=== PATIENT | female | born 1975 | race African-American/Black ===

== ENCOUNTER 2016-11-09 10:37 | Day surgery (SDC) | payer OTHER ==
[2016-11-05 10:09] VITALS: BMI 21.6
[2016-11-09] MEDS ORDERED: oxyCODONE HCL 5 MG TABLET PO PRN ×2 (12:53→15:44)
[2016-11-09] MEDS ORDERED: PROMETHAZINE HCL 25 MG/1 ML VIAL IVPUSH PRN (12:53)
[2016-11-09] MEDS ORDERED: ONDANSETRON 4 MG/2 ML VIAL IVPUSH PRN (12:53)
--- NOTE | 2016-11-09 12:58 | HP ---
History & Physical Update - History History: No Change - Physical Physical: No Change - Assessment Assessment: No Change - Plan Plan: No Change (Consent signed and witnessed)
[2016-11-09] MEDS ORDERED: LACTATED RINGERS SOLUTION 1,000 ML IV SCH (13:00)
[2016-11-09] MEDS ORDERED: MIDAZOLAM HCL 2 MG/2 ML SINGLE DOSE VIAL ONE (13:14)
[2016-11-09] MEDS ORDERED: PROPOFOL 20 ML ONE (13:23)
[2016-11-09] MEDS ORDERED: LIDOCAINE HCL/PF 2% SDV 5ML VIAL ONE (13:38)
[2016-11-09] MEDS ORDERED: KETOROLAC TROMETHAMINE 30 MG/1 ML VIAL ONE (13:38)
[2016-11-09] MEDS ORDERED: DEXAMETHASONE SOD PHOSPHATE 4 MG/1 ML VIAL ONE (13:38)
--- NOTE | 2016-11-09 14:33 | OP ---
Operative Note - Note: Operative Date: 11/09/16 Pre-Operative Diagnosis: 41 yo P2 with Menorhagia, fibroid uterus Operation: Hysteroscopy, adhesiolysis, myomectomy, polypectomy using Kyree-Clear device Findings: 1. Fibropolypoid tissue at the uterine fundus 2. Polypoid tissue anterior uterine body 3. Uterine adhesion Post-Operative Diagnosis: Same as Pre-op (and uterine adhesions) Surgeon: Carrie Hatfield Anesthesiologist/ENGINEER TECHNICAL STAFF: Radha Britton MD Anesthesia: General Specimens Removed: 1. Fibroid, polyp, adhesion. 2. Endometrial curettings Estimated Blood Loss (mls): 20 Drains, Volume Out (mls): 50 Fluid Volume Replaced (mls): 800 Operative Report Dictated: Yes
[2016-11-09] MEDS ORDERED: IBUPROFEN 600 MG TABLET (FP) PO PRN (15:44)
[2016-11-09] MEDS ORDERED: IBUPROFEN 800 MG/8 ML IJ IVPB PRN (15:44)
[2016-11-09] MEDS ORDERED: ONDANSETRON 4 MG/2 ML VIAL IVPB PRN (15:44)
[2016-11-09] MEDS ORDERED: ELECTROLYTE-148 SOLN 1,000 ML IV SCH (15:45)
[2016-11-09 15:46] VITALS: TEMP 97.9
[2016-11-09 17:13] VITALS: BP 137/76; PULSE 56
--- NOTE | 2016-11-11 09:02 | OP ---
DATE OF OPERATION: 11/09/2016 PREOPERATIVE DIAGNOSIS: A 41-year-old para 2 with menorrhagia and fibroid uterus. OPERATION: Hysteroscopy, adhesiolysis, myomectomy, polypectomy using Truclear device. POSTOPERATIVE DIAGNOSIS: A 41-year-old para 2 with menorrhagia and fibroid uterus, finding of uterine adhesions. FINDINGS: 1. Fibroid polypoid tissue at the uterine fundus. 2. Polypoid tissue at the inferior uterine body. 3. Uterine adhesion. SURGEON: Philipp Hatfield MD ANESTHESIOLOGIST: Radha Britton MD ANESTHESIA: General. SPECIMENS REMOVED: 1. Fibroid polyp and adhesion. 2. Endometrial curettings. DESCRIPTION OF OPERATIVE PROCEDURE: After ensuring informed consent, the patient was brought to the operating room where she was placed in dorsal lithotomy position. The perineum and vagina were prepped and draped in a sterile fashion. After the Truclear hysteroscope was set up, wide balanced, and primed, the Pierre speculums were placed into the vagina. Anterior cervical lip was articulated with a single-tooth tenaculum, and cervix was gradually dilated with Leger dilators to accommodate the 5-mm hysteroscope. The 5-mm hysteroscope was introduced without any difficulty, and intrauterine contents were surveyed. The uterine fundus contained approximately 2-cm fibroid polypoid structure. The anterior uterine body contained small polyps and also an adhesion spanning from anterior to posterior uterine surface. The Truclear device was used to resect all above discussed structures and suction them into the specimen trap, which was then sent to pathology. The sharp, serrated curette was used to perform sharp curette. Uterus was found to be empty of any further contents. All sponges and instruments were removed from the vagina. Excellent hemostasis was achieved. Instrument and sponge count was correct x2. Estimated blood loss was 20 mL. The patient put out 50 mL of urine and had 800 mL of Plasma-Lyte replaced. PHILIPP HATFIELD M.D. [id number]
--- NOTE | 2016-11-11 13:17 | PATH ---
Surgical Pathology Report Patient Name: ALIE CARTER Med. Rec. #: [id number] /Age/Gender: 1975 (Age: 41) / F Account: [id number] Location: [facility] SURGICAL Taken: 11/09/2016 Received: 11/10/2016 Reported: 11/11/2016 Physicians: Carrie Hatfield M.D. Specimen(s) Received A: FIBROID VS POLYP, UTERINE ADHESION B: ENDOMETRIAL CURETTINGS Clinical History Endometrial thickening Final Diagnosis A. FIBROID VS POLYP, UTERINE ADHESION: POLYPOID FRAGMENTS OF DISORDERED PROLIFERATIVE ENDOMETRIUM WITH AREAS MOST CONSISTENT WITH ENDOMETRIAL POLYP. ADDITIONAL FRAGMENTS OF INACTIVE-TYPE ENDOMETRIUM, SUGGESTIVE OF ADHESION. FRAGMENTS OF BENIGN SMOOTH MUSCLE. B. ENDOMETRIUM, CURETTAGE: FRAGMENTS OF INACTIVE ENDOMETRIUM. FRAGMENTS OF BENIGN SMOOTH MUSCLE. FRAGMENTS OF BENIGN ENDOCERVICAL TISSUE. FRAGMENTS OF BENIGN SQUAMOUS EPITHELIUM. Electronically Signed Luis Gonsalez M.D. Gross Description A. Received in formalin, labeled "fibroids versus polyp, uterine adhesion" are multiple fragments of wakefield-pink and wakefield-red tissue ranging from 0.2 0.3 cm greatest dimension. Submitted entirely in one cassette. B. Received in formalin, labeled "endometrial curettings" multiple fragments a wakefield-red hemorrhagic tissue 2.5 x 2 x 0.3 cm in aggregate size. Submitted entirely in one cassette. AF/11/10/2016 final/11/10/2016
== END 2016-11-09 17:00 | disposition home or self-care (01) ==
LOC: JASU-SURG 10:37
PROVIDERS: ATTEND Obstetrics & Gynecology
PROC: 0UB98ZX Excision of Uterus, Via Natural or Artificial Opening Endoscopic, Diagnostic (ICD-10-PCS; principal; 2016-11-09 12:00)
PROC: 0UB98ZZ Excision of Uterus, Via Natural or Artificial Opening Endoscopic (ICD-10-PCS; 2016-11-09 12:00)
DX: N92.0 Excessive and frequent menstruation with regular cycle (principal); D25.9 Leiomyoma of uterus, unspecified; N84.0 Polyp of corpus uteri; N73.6 Female pelvic peritoneal adhesions (postinfective)
CPT/HCPCS: 84703; 88305-TC; 94760

== ENCOUNTER 2016-11-16 16:01 | Inpatient (IN) | payer OTHER ==
[2016-11-16] MEDS ORDERED: ONDANSETRON 4 MG/2 ML VIAL IVPB ONE (17:18)
[2016-11-16] MEDS ORDERED: ACETAMINOPHEN 325 MG TABLET (FP) PO ONE (17:28)
[2016-11-16] MEDS ORDERED: morphine CARPU-JECT 4 MG/1 ML DISP.SYRIN IVPUSH ONE (17:29)
[2016-11-16] MEDS ORDERED: ONDANSETRON 4 MG/2 ML VIAL ONE (17:31)
--- NOTE | 2016-11-16 17:36 | PDOC ---
History of Present Illness - General History Source: Patient, Old Records Exam Limitations: No Limitations - History of Present Illness Initial Comments: 11/16/16 17:36 The patient is a 41 year old female presenting with her daughter, with a significant past medical history of anemia, fibroids and asthma, who presents to the emergency department with abdominal pain, nausea, fever, chills, diarrhea and vaginal discharge for the past 2 days. She reports that her abdominal pain is localized in the suprapubic region, ranging from mild to moderate. She notes that her diarrhea is nonbloody. She states that her vaginal discharge has a foul smell. The patient had a D&C performed last week due to her fibroids. Since shes had vaginal spotting that has turned into small clots the last couple of days. The patient denies chest pain, shortness of breath, headache and dizziness. Denies, vomit, and constipation. Denies dysuria, frequency, urgency and hematuria. Allergies: None Past surgical history: (x2) Social history: Cigarette use (10 daily). No alcohol or drug use reported <Josh Montague - Last Filed: 11/16/16 18:10> <William Obrien - Last Filed: 11/16/16 19:00> - General Chief Complaint: Pain Stated Complaint: NAUSEA Time Seen by Provider: 11/16/16 16:58 Past History <Josh Montague - Last Filed: 11/16/16 18:10> - Past Medical History Anemia: Yes Asthma: Yes Cancer: No Cardiac Disorders: No CVA: No COPD: No CHF: No Dementia: No Diabetes: No GI Disorders: No Disorders: No HTN: No Hypercholesterolemia: No Liver Disease: No Seizures: No Thyroid Disease: No - Surgical History Abdominal Surgery: Yes Appendectomy: No Cardiac Surgery: No Cholecystectomy: No Lung Surgery: No Neurologic Surgery: No Orthopedic Surgery: No - Family Disease History Family Disease History: Heart Disease: Mother (hypertension) - Psycho/Social/Smoking Cessation Hx Anxiety: No Suicidal Ideation: No Smoking History: Current every day smoker Have you smoked in the past 12 months: Yes Number of Cigarettes Smoked Daily: 5 Information on smoking cessation initiated: No 'Breaking Loose' booklet given: 11/09/16 Hx Alcohol Use: No Drug/Substance Use Hx: No Substance Use Type: Alcohol Hx Substance Use Treatment: No <CamilleWilliam - Last Filed: 11/16/16 19:00> - Past Medical History Allergies/Adverse Reactions: Allergies Allergy/AdvReac Type Severity Reaction Status Date / Time latex [Latex] Allergy Rash Verified 11/16/16 16:39 No Known Drug Allergies Allergy Verified 11/16/16 16:39 Home Medications: Ambulatory Orders Montelukast Na [Singulair -] 10 mg PO HS 01/11/15 Loratadine [Claritin] 10 mg PO DAILY PRN 11/05/16 Review of Systems - Review of Systems Able to Perform ROS?: Yes Comments:: 11/16/16 17:37 GENERAL/CONSTITUTIONAL: (+) Fever and chills. No weakness. HEAD, EYES, EARS, NOSE AND THROAT: No change in vision. No ear pain or discharge. No sore throat. CARDIOVASCULAR: No chest pain or shortness of breath RESPIRATORY: No cough, wheezing, or hemoptysis. GASTROINTESTINAL: (+) Nausea and diarrhea. No vomiting or constipation. GENITOURINARY: (+) Vaginal discharge with foul odor. No dysuria, frequency, or change in urination. MUSCULOSKELETAL: No joint or muscle swelling or pain. No neck or back pain. SKIN: No rash NEUROLOGIC: No headache, vertigo, loss of consciousness, or change in strength/ sensation. ENDOCRINE: No increased thirst. No abnormal weight change HEMATOLOGIC/LYMPHATIC: No anemia, easy bleeding, or history of blood clots. ALLERGIC/IMMUNOLOGIC: No hives or skin allergy. <Josh Montague - Last Filed: 11/16/16 18:10> *Physical Exam - Vital Signs Last Vital Signs Temp Pulse Resp BP Pulse Ox 100.2 F H 111 H 18 150/99 99 11/16/16 16:38 11/16/16 16:38 11/16/16 16:38 11/16/16 16:38 11/16/16 16:38 - Physical Exam Comments: 11/16/16 17:37 GENERAL: Awake, alert, and fully oriented, in no acute distress HEAD: No signs of trauma, normocephalic, atraumatic EYES: PERRLA, EOMI, sclera anicteric, conjunctiva clear ENT: Auricles normal inspection, hearing grossly normal, nares patent, oropharynx clear without exudates. Moist mucosa NECK: Normal ROM, supple, no lymphadenopathy, JVD, or masses LUNGS: No distress, speaks full sentences, clear to auscultation bilaterally HEART: Regular rate and rhythm, normal S1 and S2, no murmurs, rubs or gallops, peripheral pulses normal and equal bilaterally. ABDOMEN: (+) Diffuse lower abdominal tenderness most pronounced in the left quadrant. Soft, normoactive bowel sounds. No guarding, no rebound. No masses EXTREMITIES: Normal inspection, Normal range of motion, no edema. No clubbing or cyanosis. NEUROLOGICAL: Cranial nerves II through XII grossly intact. Normal speech, normal gait, no focal sensorimotor deficits SKIN: Warm, Dry, normal turgor, no rashes or lesions noted. PELVIC EXAM: (+) No CMT, palpable fibroids with no adnexal tenderness, scant greenish discharge, no active bleeding, os is closed. <Josh Montague - Last Filed: 11/16/16 18:10> - Vital Signs Last Vital Signs Temp Pulse Resp BP Pulse Ox 100.2 F H 111 H 18 150/99 99 11/16/16 16:38 11/16/16 16:38 11/16/16 16:38 11/16/16 16:38 11/16/16 16:38 <William Obrien - Last Filed: 11/16/16 19:00> ED Treatment Course - LABORATORY CBC & Chemistry Diagram: 11/16/16 17:29 11/16/16 17:29 <Josh Motnague - Last Filed: 11/16/16 18:10> - LABORATORY CBC & Chemistry Diagram: 11/16/16 17:29 11/16/16 17:29 <William Obrien - Last Filed: 11/16/16 19:00> Medical Decision Making - Medical Decision Making 11/16/16 18:16 41 F with h/o uterine fibroids s/p hysteroscopy, myomectomy, polypectomy with Dr. Hatfield presenting to ER with lower abdominal pain, vaginal bleeding, and discharge. Exam notable for lower abdominal TTP and foul smelling greenish vaginal discharge. Concerning for PID, possibly 2/2 recent instrumentation, though pt endorses h/o trichomonas in the past. Also consider UTI/pyelo. If source not found, will consider work up for GI etiology. - Labs, UA, UCx, GC/CT - IVF, analgesia - Call outside laborer Dr. Hatfield 11/16/16 18:59 Per conversation with covering outside laborer Dr. Olea, pt warrants IV abx and admission to hospital. CBC, BMP 11/16/16 17:29 11/16/16 17:29 CMP Sodium 135 mmol/L (136-145) L 11/16/16 17:29 Potassium 3.6 mmol/L (3.5-5.1) 11/16/16 17:29 Chloride 101 mmol/L (98-107) 11/16/16 17:29 Carbon Dioxide 25 mmol/L (21-32) 11/16/16 17:29 Anion Gap 9 (8-16) 11/16/16 17:29 BUN 8 mg/dL (7-18) 11/16/16 17:29 Creatinine 0.6 mg/dL (0.55-1.02) 11/16/16 17:29 Creat Clearance w eGFR > 60 (>60) 11/16/16 17:29 Random Glucose 86 mg/dL (74-106) 11/16/16 17:29 Lactic Acid 0.9 mmol/L (0.4-2.0) 11/16/16 17:29 Calcium 9.4 mg/dL (8.5-10.1) 11/16/16 17:29 Total Bilirubin 1.4 mg/dL (0.2-1.0) H D 11/16/16 17:29 AST 18 U/L (15-37) D 11/16/16 17:29 ALT 16 U/L (12-78) D 11/16/16 17:29 Alkaline Phosphatase 69 U/L (45-117) 11/16/16 17:29 Total Protein 7.5 g/dl (6.4-8.2) 11/16/16 17:29 Albumin 4.0 g/dl (3.4-5.0) 11/16/16 17:29 Lipase 52 U/L (73-393) L 11/16/16 17:29 Vital Signs Temp Pulse Resp BP Pulse Ox 100.2 F H 111 H 18 150/99 99 11/16/16 16:38 11/16/16 16:38 11/16/16 16:38 11/16/16 16:38 11/16/16 16:38 <William Obrien - Last Filed: 11/16/16 19:00> *DC/Admit/Observation/Transfer - Attestations Scribe Attestion: 11/16/16 17:37 Documentation prepared by Josh Montague, acting as medical reviewer for William Obrien MD <Josh Montague - Last Filed: 11/16/16 18:10> - Discharge Dispostion Admit: Yes - Attestations Physician Attestion: 11/16/16 18:36 I, Dr. William Obrien MD, attest that this document has been prepared under my direction and personally reviewed by me in its entirety. I further attest, that it accurately reflects all work, treatment, procedures and medical decision -making performed by me. <William Obrien - Last Filed: 11/16/16 19:00> Diagnosis at time of Disposition: Abdominal pain Qualifiers: Abdominal location: unspecified location Qualified Code(s): R10.9 - Unspecified abdominal pain - Referrals Referrals: Durga Colin [Primary Care Provider] -
[2016-11-16] MEDS: SODIUM CHLORIDE 1,000 ML IV SCH (18:00)
[2016-11-16 18:04] LABS: WHITE BLOOD COUNT 14.5 K/mm3 (4.0-10.0)
[2016-11-16 18:05] LABS: BASOPHIL 0.4 % (0-2.0); EOSINOPHIL 0.1 % (0-4.5); MCH 28.8 pg (25.7-33.7); MCHC 32.5 g/dl (32.0-36.0); MEAN CELL VOLUME 88.6 fl (80-96); MEAN PLT VOLUME 9.1 fl (7.5-11.1); NEUTROPHILS 89.7 % (42.8-82.8); PLATELET COUNT 194 K/MM3 (134-434); RDW 14.4 % (11.6-15.6)
[2016-11-16] MEDS ORDERED: ACETAMINOPHEN 325 MG TABLET (FP) ONE (18:29)
[2016-11-16] MEDS ORDERED: morphine CARPU-JECT 4 MG/1 ML DISP.SYRIN ONE (18:29)
[2016-11-16 18:35] LABS: ANION GAP 9 (8-16); CALCIUM 9.4 mg/dL (8.5-10.1); CO2 25 mmol/L (21-32); GLUCOSE,RANDOM 86 mg/dL (74-106)
[2016-11-16 18:38] LABS: ALK PHOS 69 U/L (45-117); BILIRUBIN,TOTAL 1.4 mg/dL (0.2-1.0); CREATININE 0.6 mg/dL (0.55-1.02); SGOT/AST 18 U/L (15-37); SGPT/ALT 16 U/L (12-78); TOT PROT 7.5 g/dl (6.4-8.2)
[2016-11-16 18:54] LABS: URINE APPEARANCE CLOUDY; URINE BILIRUBIN NEGATIVE (NEGATIVE); URINE BLOOD 3+ (NEGATIVE); URINE COLOR YELLOW; URINE GLUCOSE (UA) NEGATIVE (NEGATIVE); URINE KETONE 1+ (NEGATIVE); URINE LEUK ESTERASE 3+ (NEGATIVE); URINE NITRITE NEGATIVE (NEGATIVE); URINE PROTEIN 2+ (NEGATIVE); URINE UROBILINOGEN NEGATIVE mg/dL (0.2-1.0)
[2016-11-16] MEDS ORDERED: CEFTRIAXONE 1 GM in DEXTROSE 5%-WATER - 50 ML IVPB ONE (19:01)
[2016-11-16 19:09] LABS: URINE MUCUS RARE; URINE RBC 4 /hpf (0-3); URINE WBC 164 /hpf (3-5)
[2016-11-16 19:16] LABS: INR 1.2 (0.82-1.09); PROTHROMBIN TIME (PATIENT) 13.2 SEC (9.98-11.88)
[2016-11-16] MEDS ORDERED: CEFTRIAXONE 50 ML ONE (20:01)
[2016-11-16] MEDS ORDERED: IBUPROFEN 600 MG TABLET (FP) PO ONE ×2 (20:16→20:18)
[2016-11-16] MEDS ORDERED: IBUPROFEN 600 MG TABLET (FP) PO PRN (23:34)
[2016-11-16] MEDS: oxyCODONE HCL 5 MG TABLET PO PRN (23:52)
[2016-11-16] MEDS: ACETAMINOPHEN 325 MG TABLET (FP) PO PRN (23:53)
[2016-11-17] MEDS: DOXYCYCLINE INJECTION 100 MG in DEXTROSE 5%-WATER - 100 ML IVPB SCH ×3 (00:01→22:07)
[2016-11-17 00:57] VITALS: BMI 22.1
[2016-11-17] MEDS: METRONIDAZOLE 500 MG PREMIXED 100 ML IVPB SCH ×3 (02:18→19:13)
[2016-11-17] MEDS: oxyCODONE HCL 5 MG TABLET PO PRN ×2 (07:52→22:07)
[2016-11-17 07:55] LABS: BASOPHIL 0.3 % (0-2.0); EOSINOPHIL 1.1 % (0-4.5); MCH 29.5 pg (25.7-33.7); MCHC 33.5 g/dl (32.0-36.0); MEAN CELL VOLUME 88.1 fl (80-96); MEAN PLT VOLUME 8.6 fl (7.5-11.1); NEUTROPHILS 80.2 % (42.8-82.8); PLATELET COUNT 168 K/MM3 (134-434); RDW 14.3 % (11.6-15.6)
[2016-11-17 07:57] LABS: INR 1.26 (0.82-1.09); PROTHROMBIN TIME (PATIENT) 13.9 SEC (9.98-11.88)
[2016-11-17 08:00] LABS: ACTIVATED PTT 34.9 SECONDS (26.9-34.4)
[2016-11-17 08:29] LABS: ALBUMIN 2.9 g/dl (3.4-5.0); ALK PHOS 52 U/L (45-117); ANION GAP 6 (8-16); BILIRUBIN,TOTAL 0.6 mg/dL (0.2-1.0); CALCIUM 8.3 mg/dL (8.5-10.1); CO2 25 mmol/L (21-32); CREATININE 0.6 mg/dL (0.55-1.02); GLUCOSE,RANDOM 77 mg/dL (74-106); SGOT/AST 12 U/L (15-37); SGPT/ALT 13 U/L (12-78); TOT PROT 5.8 g/dl (6.4-8.2)
--- NOTE | 2016-11-17 09:23 | HP ---
Past Medical History - Primary Care Physician PCP:: Ernst Olea - Admission Chief Complaint: 41yo female s/p recent D&C admitted with postoperative endometritis History of Present Illness: Pt is s/p D&C on 11/09/16 with h/o chronic pelvic pain and fibroid uterus. The pt presented with fever and chills x 1-2 days getting worse, increased pelvic pain and foul smelling vaginal discharge. She was found to have a low grade fever and leukocytosis. 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 Cardiovascular: No: AFIB, Aneurysm, Aortic Insufficiency, Aortic Stenosis, CAD, CHF, Deep Vein Thrombosis, HTN, Hyperlipdemia, VT, Mitral Insufficiency, Mitral Stenosis, Murmur, Pulmonary Hypertension, Other Pulmonary: Yes: Asthma Gastrointestinal: No: Ascites, Cancer, Constipation, Crohn's Disease, Diverticulitis, Diverticulosis, Esophageal Varices, Gastritis, GERD, GI Bleed, Hemorrhoids, Hiatal Hernia, Inflamatory Bowel Disease, Irritable Bowel Disease, Pancreatitis, Peptic Ulcer Disease, Ulcerative Colitis, Other Hepatobiliary: No: Cirrhosis, Cholelithiasis, Cholecystitis, Choledocholithiasis , Hepatitis A, Hepatitis B, Hepatitis C, Other Renal/: No: Renal Failure, Renal Inusuff, BPH, Cancer, Hematuria, Hemodialysis , Neurogenic Bladder, Renal Calculi, UTI, Other Reproductive: Yes: Fibroids, Other (chronic pelvic pain) ...Para: 2 Heme/Onc: No: Anemia, B12 Deficiency, Bleeding Disorder, Cancer, Current Chemotherapy, Current Radiation Therapy, Hemochromatosis, Hypercoaguable State, Myeloproliferative Synd, Sickle Cell Disease, Sickle Cell Trait, Thrombocytopenia, Other Infectious Disease: No: AIDS, C-Diff, Herpes Zoster, HIV, MRSA, STD's, Tuberculosis, VREF, Other Psych: No: Addictions, Anxiety, Bipolar, Depression, Panic, Psychosis, Schizophrenia, Other Musculoskeletal: No: Bursitis, Chronic low back pain, Hemiparesis, Hemiplegia, Osteoarthritis, Paraplegia, Other Rheumatology: No: Fibromyalgia, Gout, Lupus, Rheumatoid Arthritis, Sarcoidosis, Vasculitis, Other ENT: No: Allergic Rhinitis, Sinusitis, Other Endocrine: No: Juancho's Disease, Sycamore's Disease, Diabetes Insipidus, Diabetes Mellitus, Hyperparathyroidism, Hyperthyroidism, Hypothyroidism, Osteopenia, SIADH, Other Dermatology: No: Basal Cell, Cellulitis, Eczema, Melanoma, Psoriasis, Squamous Cell, Other - Past Surgical History Past Surgical History: Yes: (x 2) Hx Myomectomy: No Hx Transabdominal Cerclage: No Additional Surgical History: Lipoma excision from left upper back - Smoking History Smoking history: Current every day smoker Have you smoked in the past 12 months: Yes Aproximately how many cigarettes per day: 5 (stopped 1 wk ago) - Alcohol/Substance Use Hx Alcohol Use: No History of Substance Use: reports: None - Social History ADL: Independent 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 [employer] History of Recent Travel: No Home Medications - Allergies Allergies/Adverse Reactions: Allergies Allergy/AdvReac Type Severity Reaction Status Date / Time latex [Latex] Allergy Rash Verified 11/16/16 16:39 No Known Drug Allergies Allergy Verified 11/16/16 16:39 - Home Medications Home Medications: Ambulatory Orders Montelukast Na [Singulair -] 10 mg PO HS 01/11/15 Loratadine [Claritin] 10 mg PO DAILY PRN 11/05/16 Family Disease History - Family Disease History Family Disease History: CA: Mother (breast ca at 45) Review of Systems - Review of Systems Constitutional: reports: Chills, Fever, Malaise, Weakness Eyes: reports: No Symptoms HENT: reports: No Symptoms Neck: reports: No Symptoms Cardiovascular: reports: No Symptoms Respiratory: reports: No Symptoms Gastrointestinal: reports: Abdominal Pain Genitourinary: reports: Vaginal Bleeding Breasts: reports: No Symptoms Reported Musculoskeletal: reports: Muscle Weakness Integumentary: reports: No Symptoms Neurological: reports: No Symptoms Endocrine: reports: No Symptoms Hematology/Lymphatic: reports: No Symptoms Psychiatric: reports: No Symptoms Pain Intensity: 6 Physical 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-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 Vital Signs: Vital Signs Temperature 98.5 F 11/17/16 06:00 Pulse Rate 87 11/17/16 06:00 Respiratory Rate 20 11/17/16 06:00 Blood Pressure 98/61 11/17/16 06:00 O2 Sat by Pulse Oximetry (%) 96 11/17/16 00:57 Constitutional: Yes: Well Nourished, No Distress, Calm Eyes: Yes: WNL, Conjunctiva Clear, EOM Intact HENT: Yes: WNL, Atraumatic, Normocephalic Neck: Yes: WNL, Supple, Trachea Midline Cardiovascular: Yes: WNL, Regular Rate and Rhythm Respiratory: Yes: WNL, Regular, CTA Bilaterally Gastrointestinal: Yes: WNL, Normal Bowel Sounds, Soft, Tenderness, Tenderness, Rebound Renal/: Yes: WNL Pelvis: Yes: Tenderness External Genitalia: Yes: Normal Internal Exam Deferred: No Vaginal Exam: Yes: Discharge Cervix: Yes: Normal Uterus: Yes: Enlarged (14wk), Firm, Lumpy, Tender Adnexa: Normal: Right, Tender: Left Breast(s): Yes: WNL Musculoskeletal: Yes: WNL Extremities: Yes: WNL Edema: No Edema: LLE: Trace, RLE: Trace Integumentary: Yes: WNL Neurological: Yes: WNL, Alert, Oriented ...Motor Strength: WNL Psychiatric: Yes: WNL, Alert, Oriented Labs: CBC, BMP 11/17/16 05:35 11/17/16 05:35 Assessment/Plan 41yo female s/p recent D&C admitted with postoperative endometritis. The pt was given IV abx and is clinically improving. The leukocytosis is decreasing, and she is now afebrile. The pain also improved. Plan to continue IV abx today and d /c home if stable. Fibroids discussed with the pt. Natural hx, pathology, tx options discussed. Explained that fibroids can be malignant in approximately 1:400 cases and imaging or endometrial sampling is not always diagnostic. The dx of malignancy can only be with examination of myomectomy or hysterectomy.
[2016-11-17] MEDS ORDERED: cefTRIAXone SODIUM 1 GM VIAL ONE (09:59)
[2016-11-17] MEDS ORDERED: DEXTROSE 5%-WATER - 50 ML IVPB ONE (10:00)
[2016-11-17] MEDS: CEFTRIAXONE 1 GM in DEXTROSE 5%-WATER - 50 ML IVPB SCH (10:52)
[2016-11-17] MEDS: POTASSIUM CHLORIDE TABS 20 MEQ TABLET.ER (FP) PO SCH ×2 (10:53→22:07)
[2016-11-17] MEDS: ACETAMINOPHEN 325 MG TABLET (FP) PO PRN (14:55)
--- NOTE | 2016-11-17 15:22 | EKG ---
Test Reason : Blood Pressure : / mmHG Vent. Rate : 103 BPM Atrial Rate : 103 BPM P-R Int : 160 ms QRS Dur : 090 ms QT Int : 334 ms P-R-T Axes : 062 048 053 degrees QTc Int : 437 ms SINUS TACHYCARDIA POSSIBLE LEFT ATRIAL ENLARGEMENT NONSPECIFIC T WAVE ABNORMALITY ABNORMAL ECG WHEN COMPARED WITH ECG OF 05-NOV-2016 17:36, VENT. RATE HAS INCREASED BY 37 BPM Confirmed by NAIDA BOLANOS, CAPRI ([id number]) on 11/17/2016 3:21:52 PM Referred By: Confirmed By:CAPRI PASCAL MD
[2016-11-17] MEDS: SODIUM CHLORIDE 1,000 ML IV SCH ×2 (19:13→23:31)
[2016-11-18] MEDS: METRONIDAZOLE 500 MG PREMIXED 100 ML IVPB SCH ×2 (02:05→10:31)
[2016-11-18] MEDS: ACETAMINOPHEN 325 MG TABLET (FP) PO PRN (06:17)
[2016-11-18] MEDS: POTASSIUM CHLORIDE TABS 20 MEQ TABLET.ER (FP) PO SCH (10:30)
[2016-11-18] MEDS: CEFTRIAXONE 1 GM in DEXTROSE 5%-WATER - 50 ML IVPB SCH (10:31)
[2016-11-18] MEDS: DOXYCYCLINE INJECTION 100 MG in DEXTROSE 5%-WATER - 100 ML IVPB SCH (10:31)
[2016-11-18 10:43] VITALS: BP 131/74; PULSE 64; TEMP 98.6
--- NOTE | 2016-11-18 19:08 | PN ---
Progress Note (SOAP) - Subjective Chief Complaint: Pt was seen earlier today. She states feeling much better, pain improved. No fever or chills, wants to go home. History of Present Illness: Postop endometritis. - Objective Vital Signs: Vital Signs Temperature 98.6 F 11/18/16 09:41 Pulse Rate 64 11/18/16 09:41 Respiratory Rate 20 11/18/16 09:41 Blood Pressure 131/74 11/18/16 09:41 O2 Sat by Pulse Oximetry (%) 97 11/18/16 09:41 Constitutional: Yes: Well Nourished, No Distress, Calm Eyes: Yes: WNL, Conjunctiva Clear HENT: Yes: WNL, Atraumatic, Normocephalic Neck: Yes: WNL, Supple, Trachea Midline Cardiovascular: Yes: WNL, Regular Rate and Rhythm Respiratory: Yes: WNL, Regular, CTA Bilaterally Gastrointestinal: Yes: WNL, Normal Bowel Sounds, Soft ...Rectal Exam: Yes: Deferred Genitourinary: Yes: WNL Musculoskeletal: Yes: WNL Extremities: Yes: WNL Peripheral Pulses WNL: No Edema: No Integumentary: Yes: WNL Neurological: Yes: WNL, Alert, Oriented ...Motor Strength: Yes: WNL Psychiatric: Yes: WNL Labs Lab Results: CBC, BMP 11/17/16 05:35 11/17/16 05:35 Imaging - Results Ultrasound: Report Reviewed Assessment/Plan 41yo female s/p recent D&C admitted with postoperative endometritis. The pt was given IV abx and is clinically improving. The pain also improved. Plan to d/c home today with office f/u this week.. Fibroids discussed with the pt.
== END 2016-11-18 11:10 | disposition home or self-care (01) | DRG 921 ==
LOC: SUPCPDRO 16:01 → JER 16:01 → JERBED 18:56 → J7W 23:23
PROVIDERS: ADMIT Obstetrics & Gynecology; ATTEND Obstetrics & Gynecology
DX: T81.89XA Other complications of procedures, not elsewhere classified, initial encounter (principal); Y83.9 Surgical procedure, unspecified as the cause of abnormal reaction of the patient, or of later complication, without mention of misadventure at the time of the procedure; N71.9 Inflammatory disease of uterus, unspecified; D72.829 Elevated white blood cell count, unspecified; F17.210 Nicotine dependence, cigarettes, uncomplicated
CPT/HCPCS: 36415; 76830-TC; 80053; 80307; 81003; 81015; 83605; 83690; 84703; 85025; 85610; 85730; 86850; 86900; 86901; 87040; 87086; 87186; 87491; 87591; 93005; 93010; 99283-25

== ENCOUNTER 2021-03-02 01:21 | Emergency (ER) | payer OTHER ==
[2021-03-02 01:41] VITALS: BP 164/89; PULSE 72; TEMP 97.6; BMI 20.7
[2021-03-02] MEDS ORDERED: LACTATED RINGERS SOLUTION 1000 ML INFUS.BAG IV ONE (02:44)
[2021-03-02] MEDS ORDERED: METOCLOPRAMIDE HCL INJECTION 10 MG/2 ML VIAL IVPUSH ONE (02:44)
[2021-03-02] MEDS ORDERED: METOCLOPRAMIDE HCL INJECTION 10 MG/2 ML VIAL ONE (02:54)
[2021-03-02 03:30] LABS: BASO % 0.6 % (0-2.0); EOS % 4.1 % (0-4.5); HEMATOCRIT 38.3 % (32.4-45.2); LYMPH % 42.2 % (8-40); MCH 30.1 pg (25.7-33.7); MCHC 33.8 g/dl (32.0-36.0); MEAN CELL VOLUME 89.1 fl (80-96); MEAN PLT VOLUME 8.5 fl (7.5-11.1); NEUT % 43.1 % (42.8-82.8); PLATELET COUNT 165 10^3/uL (134-434); RDW 13.7 % (11.6-15.6); WHITE BLOOD COUNT 5.3 K/mm3 (4.0-10.0)
[2021-03-02 03:38] LABS: CALCIUM 9.2 mg/dL (8.5-10.1)
[2021-03-02 03:39] LABS: BLOOD UREA NITROGEN 10.3 mg/dL (7-18)
[2021-03-02 03:42] LABS: CREATININE 0.8 mg/dL (0.55-1.3)
== END 2021-03-02 04:16 | disposition home or self-care (01) ==
LOC: JER 01:21
PROC: 3E033GC Introduction of Other Therapeutic Substance into Peripheral Vein, Percutaneous Approach (ICD-10-PCS; principal; 2021-03-02)
DX: R51.9 Headache, unspecified (principal)
CPT/HCPCS: 36415; 80048; 85025; 99284-25

== ENCOUNTER 2022-02-05 17:43 | Emergency (ER) | payer SELFPAY ==
[2022-02-05 18:17] VITALS: BP 138/71; PULSE 57; RESP 18; TEMP 98.2; BMI 19.1
[2022-02-05] MEDS ORDERED: predniSONE 20 MG TABLET (UD) PO ONE (18:35)
[2022-02-05] MEDS ORDERED: predniSONE 20 MG TABLET (UD) ONE (19:21)
[2022-02-05] MEDS ORDERED: ALBUTEROL SO4 2.5/IPRATROPIUM 0.5 INH SOL 3 ML VIAL.NEB. NEB ONE ×2 (19:47→19:50)
[2022-02-05 19:52] LABS: THROAT:GRP A STREP NOT DETECTED (NOTDETECTED)
== END 2022-02-05 20:57 | disposition home or self-care (01) ==
LOC: JER 17:43
PROC: 3E0F7GC Introduction of Other Therapeutic Substance into Respiratory Tract, Via Natural or Artificial Opening (ICD-10-PCS; principal; 2022-02-05)
DX: B34.9 Viral infection, unspecified (principal)
CPT/HCPCS: 0241U-QW; 71046-TC-FY; 87651; 99284-25

== ENCOUNTER 2022-11-16 04:29 | Inpatient (IN) | payer OTHER ==
[2022-11-16] MEDS ORDERED: BACITRACIN ZINC 15 GM TUBE TOPICAL OINTMENT ONE (07:48)
[2022-11-16] MEDS ORDERED: BUPIVACAINE HCL/PF 0.25% (2.5MG/ML) 10 ML VIAL ONE (08:46)
[2022-11-16] MEDS ORDERED: SCOPOLAMINE HYDROBROMIDE 1 PATCH PATCH.TD72 ONE (08:46)
[2022-11-16] MEDS ORDERED: BUPIVACAINE HCL/PF 0.5% (5MG/ML) 10 ML VIAL ONE (08:47)
[2022-11-16] MEDS ORDERED: DEXAMETHASONE SOD PHOSPHATE 10 MG/1 ML VIAL ONE (08:47)
[2022-11-16] MEDS ORDERED: MIDAZOLAM HCL 2 MG/2 ML SINGLE DOSE VIAL ONE (08:48)
[2022-11-16] MEDS ORDERED: IBUPROFEN 800 MG/8 ML IJ IVPB PRN (09:09)
[2022-11-16] MEDS ORDERED: ONDANSETRON 4 MG/2 ML VIAL IVPUSH PRN (09:09)
[2022-11-16] MEDS ORDERED: IBUPROFEN 600 MG TABLET (FP) PO PRN (09:09)
[2022-11-16] MEDS ORDERED: HYDROmorphone HCl 2 MG/ML VIAL ONE ×2 (09:13→10:15)
[2022-11-16] MEDS ORDERED: ELECTROLYTE-148 SOLN 1,000 ML IV SCH (09:15)
[2022-11-16] MEDS ORDERED: PROPOFOL 20 ML ONE (09:16)
[2022-11-16] MEDS ORDERED: LIDOCAINE HCL/PF 2% SDV 5ML VIAL ONE (09:16)
[2022-11-16] MEDS ORDERED: ceFAZolin SODIUM 1 GM VIAL ONE (09:16)
[2022-11-16] MEDS ORDERED: ROCURONIUM BROMIDE 50 MG/5 ML SYRINGE ONE ×2 (09:17→10:27)
[2022-11-16] MEDS ORDERED: ceFAZolin SODIUM 1 GM VIAL IVPB ONE (09:32)
[2022-11-16] MEDS: CEFAZOLIN SODIUM 2 GM in DEXTROSE 5%-WATER 100 ML IVPB SCH ×2 (09:32→17:01)
[2022-11-16] MEDS ORDERED: CEFAZOLIN SODIUM 2 GM VIAL IVPB SCH (10:00)
[2022-11-16] MEDS ORDERED: DEXAMETHASONE SOD PHOSPHATE 4 MG/1 ML VIAL ONE (10:25)
[2022-11-16] MEDS ORDERED: ONDANSETRON 4 MG/2 ML VIAL ONE (10:25)
[2022-11-16] MEDS ORDERED: GLYCOPYRROLATE 0.2 MG/1 ML VIAL ONE (10:51)
[2022-11-16] MEDS ORDERED: NEOSTIGMINE METHYLSULFATE 0.5 MG/1 ML - 10 ML MDV ONE (10:51)
[2022-11-16] MEDS ORDERED: BENZOIN/ALOE VERA/STORAX/TOLU 58 ML BOTTLE ONE (11:29)
[2022-11-16] MEDS ORDERED: LACTATED RINGERS SOLUTION 1,000 ML IV SCH (12:30)
[2022-11-16] MEDS ORDERED: HYDROmorphone *PCA* 10MG/50ML DISP.SYRIN PCA SCH (12:30)
[2022-11-17] MEDS: CEFAZOLIN SODIUM 2 GM in DEXTROSE 5%-WATER 100 ML IVPB SCH (01:34)
[2022-11-17 08:25] LABS: HEMATOCRIT 26.7 % (32.4-45.2); HEMOGLOBIN 8.7 GM/dL (10.7-15.3); MCH 29.4 pg (25.7-33.7); MCHC 32.7 g/dl (32.0-36.0); MEAN CELL VOLUME 90.1 fl (80-96); PLATELET COUNT 151 10^3/uL (134-434); RBC 2.96 M/mm3 (3.60-5.2); WHITE BLOOD COUNT 6.8 K/mm3 (4.0-10.0)
[2022-11-17] MEDS ORDERED: ENOXAPARIN NA (PORCINE) 40 MG/0.4 ML DISP.SYRIN SQ ONE (09:12)
[2022-11-17] MEDS: DOCUSATE SODIUM 100 MG CAPSULE (FP) PO SCH ×3 (10:00→21:03)
[2022-11-17] MEDS: FERROUS SO4 325 MG TABLET (FP) PO SCH ×2 (10:33→21:05)
[2022-11-17] MEDS: oxyCODONE HCL 5 MG TABLET PO PRN ×2 (12:25→16:17)
[2022-11-17 22:11] VITALS: RESP 18
[2022-11-18] MEDS: DOCUSATE SODIUM 100 MG CAPSULE (FP) PO SCH (06:17)
[2022-11-18] MEDS ORDERED: BISACODYL 10 MG SUPP.RECT PR PRN (09:42)
[2022-11-18] MEDS: FERROUS SO4 325 MG TABLET (FP) PO SCH (09:44)
[2022-11-18 10:11] VITALS: BP 125/68; PULSE 100; TEMP 98.4
== END 2022-11-18 10:30 | disposition home or self-care (01) | DRG 743 ==
LOC: J2C 04:29 → J3W 14:57
PROVIDERS: ADMIT Obstetrics & Gynecology; ATTEND Obstetrics & Gynecology
PROC: 0UT70ZZ Resection of Bilateral Fallopian Tubes, Open Approach (ICD-10-PCS; 2022-11-16)
PROC: 0UT90ZZ Resection of Uterus, Open Approach (ICD-10-PCS; principal; 2022-11-16 09:50)
DX: D25.9 Leiomyoma of uterus, unspecified (principal); R10.2 Pelvic and perineal pain
CPT/HCPCS: 36415; 81025; 85027; 86850; 86900; 86901; 88302-TC; 88307-TC; 94760; J1100